=== PATIENT | male | born 1980 | race Hispanic/Latino ===

== ENCOUNTER 2018-06-09 06:09 | Emergency (ER) | payer BC ==
[2018-06-09 06:27] VITALS: RESP 17
--- NOTE | 2018-06-09 06:37 | ED PDOC ---
HPI: Chest Pain Time Seen by Provider: 06/09/18 06:15 Chief Complaint (Nursing): Chest Pain History Per: Patient History/Exam Limitations: no limitations Onset/Duration Of Symptoms: Days Current Symptoms Are (Timing): Still Present Quality: Pressure Exacerbating Factors: Deep Breathing Additional Complaint(s): 37 year old with no PMHx, former smoker, presenting with chest pain, states it started Thursday after having several episodes of vomiting as a result of alcohol usage on Thursday night. States the pain has been persistent, located on his R sternum and radiating to R side of his chest, worse when taking a deep breath, states he feels as though his "rib cage is too small". Denies shortness of breath otherwise, no sweats, no palpitations. No fevers, cough, recent illnesses. Took no meds prior to arrival. Patient states he has a strong family history of cardiac disease in his father and grandfather. PMD: No primary care - Risk Factors PE Risk Factors: Pos: Active Cancer Past Medical History Vital Signs: Last Vital Signs Temp 98.1 F 06/09/18 06:14 Pulse 82 06/09/18 06:14 Resp 17 06/09/18 06:14 BP 136/73 06/09/18 06:14 Pulse Ox 98 06/09/18 06:14 - Family History Family History: States: CAD - Allergies Allergies/Adverse Reactions: Allergies Allergy/AdvReac Type Severity Reaction Status Date / Time nut - unspecified Allergy Intermediate hives and Verified 06/09/18 06:28 swelling to throat BRAYDEN Risk Score for UA/NSTEMI - BRAYDEN Risk Score Age > 64: NO 3 or more CAD Risk Factors: NO Known CAD (Stenosis greater than 50%): NO Aspirin use in past 7 days: NO Severe Angina: NO EKG ST changes greater than 0.5mm: NO Positive Cardiac Marker: NO BRAYDEN Score: 0 Risk %: 5% Curb-65 Severity Score - CURB-65 Severity Score Confusion: No Bun >19mg/dl (>7mmol/L): No Respiratory Rate greater than/equal to 30: No Systolic BP <90 or Diastolic BP less than/equal 60mmHg: No Age >64: No Curb-65 Score: 0 Percentage 30-day mortality: 0.6% Wells Criteria for PE - Wells Criteria for Pulmonary Embolism Clinical Signs and Symptoms of DVT: No P.E is #1 Diagnosis, or Equally Likely: No Heart Rate >100: No Immobilization at least 3 days;Surgery previous 4 weeks: No Previous, objectively diagnosed PE or DVT: No Hemoptysis: No Malignancy w/treatment within 6 months, or palliative: No Total Score: 0 Review of Systems ROS Statement: Except As Marked, All Systems Reviewed And Found Negative Cardiovascular: Positive for: Chest Pain Respiratory: Positive for: Pleuritic Pain Physical Exam - Reviewed Nursing Documentation Reviewed: Yes Vital Signs Reviewed: Yes - Physical Exam Appears: Positive for: Well, Non-toxic, No Acute Distress Head Exam: Positive for: ATRAUMATIC, NORMAL INSPECTION, NORMOCEPHALIC Skin: Positive for: Normal Color, Warm, DRY Eye Exam: Positive for: EOMI, Normal appearance, PERRL ENT: Positive for: Normal ENT Inspection Neck: Positive for: Normal, Painless ROM Cardiovascular/Chest: Positive for: Regular Rate, Rhythm Respiratory: Positive for: CNT, Normal Breath Sounds Gastrointestinal/Abdominal: Positive for: Normal Exam, Soft Back: Positive for: Normal Inspection Extremity: Positive for: Normal ROM Neurologic/Psych: Positive for: Alert, 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 Negative for: Motor/Sensory Deficits - ECG ECG Rhythm: Positive for: Normal QRS, Normal ST Segment, Sinus Rhythm, Nonspecific Changes O2 Sat by Pulse Oximetry: 98 Pulse Ox Interpretation: Normal Medical Decision Making Medical Decision Makin No PMHx presenting with chest pain, R sided x 3 days --Vitals stable, patient appears well, EKG NSR --Chest pain likely non-cardiac, most likely MSK --Will check troponin, CXR --Will endorse case to Dr. Mendoza at 7AM pending workup and re-eval --Patient offered pain medication (advil), refusing at this time Disposition - Clinical Impression Clinical Impression: Atypical chest pain - Disposition Disposition: Transfer of Care Disposition Time: 07:00 Condition: STABLE Patient Signed Over To: Bartolo Mendoza Handoff Comments: pending workup and re-eval
[2018-06-09 06:48] LABS: HEMOGLOBIN 14.4 g/dL (12.0-18.0); MEAN CORPUSCULAR HEMOGLOBIN 30.4 pg (27.0-31.0); MEAN CORPUSCULAR HGB CONC 34.2 g/dL (33.0-37.0); RBC 4.73 Mil/uL (4.40-5.90); RED CELL DISTRIBUTION WIDTH 12.8 % (11.5-14.5); WHITE BLOOD COUNT 13.8 K/uL (4.8-10.8)
[2018-06-09 06:57] LABS: BLOOD UREA NITROGEN 12 mg/dl (9-20); CALCIUM 9.8 mg/dL (8.4-10.2); GFR NON-AFRICAN AMERICAN > 60
--- NOTE | 2018-06-09 07:09 | ED PDOC ---
- Laboratory Results Result Diagrams: 06/09/18 06:40 06/09/18 06:40 - ECG O2 Sat by Pulse Oximetry: 98 - Progress Re-evaluation Time: 08:00 Condition: Re-examined, Improved Medical Decision Making Medical Decision Making: Time: 0700 Patient is endorsed to provider from Nahid Salamanca MD. Pending labs and reevaluation. Scribe Attestation: Documented by Berny Hamilton, acting as a scribe for Bartolo Mendoza MD. Provider Scribe Attestation: All medical record entries made by the Scribe were at my direction and personally dictated by me. I have reviewed the chart and agree that the record accurately reflects my personal performance of the history, physical exam, medical decision making, and the department course for this patient. I have also personally directed, reviewed, and agree with the discharge instructions and disposition. Disposition Doctor Will See Patient In The: Office Counseled Patient/Family Regarding: Studies Performed, Diagnosis, Need For Followup - Clinical Impression Clinical Impression: Atypical chest pain, Epigastric pain - POA Present On Arrival: None - Disposition Referrals: [facility] [Outside] Disposition: Routine/Home Disposition Time: 08:01 Condition: GOOD Additional Instructions: PRICILA MILLER, thank you for letting us take care of you today. Your provider was Bartolo Mendoza MD and you were treated for CHEST PAIN. The emergency medical care you received today was directed at your acute symptoms. If you were prescribed any medication, please fill it and take as directed. It may take several days for your symptoms to resolve. Return to the Emergency Department if your symptoms worsen, do not improve, or if you have any other problems. Please contact your doctor or call one of the physicians/clinics you have been referred to that are listed on the Patient Visit Information form that is included in your discharge packet. Bring any paperwork you were given at discharge with you along with any medications you are taking to your follow up visit. Our treatment cannot replace ongoing medical care by a primary care pr ovider outside of the emergency department. Thank you for allowing the [facility] team to be part of your care today. If you had an X-Ray or CT scan: A Radiologist will review the ED reading if any change in treatment is needed we will contact you. If you had a blood, urine, or wound culture: It will take several days for the results, if any change in treatment is needed we will contact you. If you had an STI test: It will take 48 hours for the results. Please call after 1 week if you have not heard back. Instructions: Chest Pain
[2018-06-09 07:43] VITALS: BP 118/63; PULSE 77
[2018-06-09 08:02] VITALS: O2SAT 98
[2018-06-09 08:07] VITALS: TEMP 98.2
--- NOTE | 2018-06-09 08:09 | RAD ---
Date of service: 06/09/2018 HISTORY: chest pain COMPARISON: No prior. TECHNIQUE: Chest PA and lateral FINDINGS: LUNGS: No consolidation seen. A hyper density 3 x 9 mm projects left lateral to the T9-10 disc space on the frontal view its location a lateral is indeterminate; however a possible anterior sternal related focus is a consideration. If patient has outside x-rays of the most helpful in ensuring stability of this appearance. If not consider noncontrast CT to assist with its localization and potential clinical significance, if any. It appears more hyperdense than a typical pulmonary nodule may be osseous or calcified in nature. PLEURA: No significant pleural effusion identified. No pneumothorax apparent. CARDIOVASCULAR: No aortic atherosclerotic calcification present. Normal cardiac size. No pulmonary vascular congestion. OSSEOUS STRUCTURES: As above VISUALIZED UPPER ABDOMEN: Normal. OTHER FINDINGS: None. IMPRESSION: No infiltrate or cardiomegaly. Indeterminate oval hyperdensity projecting on the frontal view left lateral to the T9-10 disc space on the frontal view its location a lateral is indeterminate; however a possible anterior sternal related focus is a consideration. If patient has outside x-rays of the most helpful in ensuring stability of this appearance. If not consider noncontrast CT to assist with its localization and potential clinical significance, if any. It appears more hyperdense than a typical pulmonary nodule may be osseous or calcified in nature. Comments: Study marked for PA review .
--- NOTE | 2018-06-09 10:09 | CARD ---
APPROVED REPORT Date of service: 06/09/2018 EKG Measurement Heart [id number] <Conclusion> Normal sinus rhythm Non specific T-wave changes Abnormal ECG
== END 2018-06-09 08:04 | disposition home or self-care (01) ==
LOC: H.ER 06:09
DX: R07.89 Other chest pain (principal); R10.13 Epigastric pain